=== PATIENT | female | born 1995 | race African-American/Black ===

== ENCOUNTER 2017-03-21 16:06 | Emergency (ER) | payer OTHER ==
[~2017-03-21] VITALS: Ht 154.9 cm; Wt 52.2 kg
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
[2017-03-21 17:49] VITALS: BP 118/80
[2017-03-21 17:50] VITALS: BP 118/80
--- NOTE | 2017-03-22 11:26 | Diagnostic Imaging Report ---
Indication: Reason For Exam: PAIN Technique: One view of the chest Comparison: none Findings: Lungs and pleural spaces are clear. Heart size is normal Impression: No acute process
--- NOTE | 2017-03-22 11:27 | Diagnostic Imaging Report ---
Indication: Knee pain Technique: 3 views of the left knee Comparison: None Findings: No suprapatellar effusion. No acute fractures. No dislocations. The joint spaces are preserved Impression: Negative
== END 2017-03-21 17:52 | disposition home or self-care (01) ==
LOC: EDBD 16:06 → EMR 16:31
DX: S80.02XA Contusion of left knee, initial encounter (principal); V43.52XA Car driver injured in collision with other type car in traffic accident, initial encounter; Y92.410 Unspecified street and highway as the place of occurrence of the external cause
CPT/HCPCS: 71045; 99283